=== PATIENT | female | born 1965 | race Caucasian/White ===

== ENCOUNTER → 2016-11-21 | Outpatient (CLI) | payer BC | LOC: FIMAGING 08:09 | PROVIDERS: ATTEND Radiology Diagnostic Radiology | DX: I83.812 Varicose veins of left lower extremity with pain (principal) ==

== ENCOUNTER → 2017-02-10 | Outpatient (CLI) | payer BC, OTHER | LOC: BMCIMAGING 14:01 | PROVIDERS: ATTEND Family Medicine | DX: Z12.31 Encounter for screening mammogram for malignant neoplasm of breast (principal) | CPT/HCPCS: G0202 ==

== ENCOUNTER 2017-02-16 07:37 | Day surgery (SDC) | payer BC, OTHER ==
[2017-02-16] MEDS ORDERED: SODIUM TETRADECYL SULFATE 60 MG/2 ML VIAL IV ONE (08:11)
[2017-02-16] MEDS ORDERED: LIDO/EPI 1% **for epidural** 30 ML SDV ONE (08:11)
[2017-02-16] MEDS ORDERED: ONDANSETRON 4 MG/2 ML VIAL IVP ONE (08:41)
[2017-02-16] MEDS ORDERED: ceFAZolin 2 GM/DEXTROSE 100 ML IV ONE (08:41)
[2017-02-16] MEDS ORDERED: NS 1,000 ML IV ONE (08:41)
[2017-02-16] MEDS ORDERED: CEFAZOLIN 2 GM/DEXTROSE/100 ML BAG IV ONE (08:46)
[2017-02-16] MEDS ORDERED: fentaNYL 100 MCG/2 ML INJ ONE ×2 (09:32→11:08)
[2017-02-16] MEDS ORDERED: MIDAZOLAM 2 MG/2 ML VIAL ONE ×2 (09:33→11:09)
[2017-02-16 12:10] VITALS: PULSE 69; RESP 14
[2017-02-16 13:28] VITALS: O2SAT 96
[2017-02-16 14:24] VITALS: BP 104/68
== END 2017-02-16 15:21 | disposition home or self-care (01) ==
LOC: FIMAGING 07:37
PROVIDERS: ATTEND Radiology Diagnostic Radiology
PROC: 065Q3ZZ Destruction of Left Saphenous Vein, Percutaneous Approach (ICD-10-PCS; principal; 2017-02-16 11:35)
PROC: 06DQ3ZZ Extraction of Left Saphenous Vein, Percutaneous Approach (ICD-10-PCS; principal; 2017-02-16 11:35)
PROC: 3E033TZ Introduction of Destructive Agent into Peripheral Vein, Percutaneous Approach (ICD-10-PCS; principal; 2017-02-16 11:35)
DX: I83.892 Varicose veins of left lower extremity with other complications (principal)
CPT/HCPCS: J0690; J2250; J3010

== ENCOUNTER → 2018-01-16 | Outpatient (CLI) | payer OTHER | LOC: FIMAGING 19:41 | PROVIDERS: ATTEND Family Medicine | DX: M79.605 Pain in left leg (principal); R60.0 Localized edema ==

== ENCOUNTER → 2018-02-16 | Outpatient (CLI) | payer OTHER | LOC: FIMAGING 10:45 | PROVIDERS: ATTEND Family Medicine | DX: Z12.31 Encounter for screening mammogram for malignant neoplasm of breast (principal) ==

== ENCOUNTER 2018-05-11 08:24 | Emergency (ER) | payer OTHER ==
[2018-05-11] MEDS ORDERED: NS 1,000 ML IV ONE (09:00)
[2018-05-11] MEDS ORDERED: ONDANSETRON 4 MG/2 ML VIAL IVP ONE (09:00)
--- NOTE | 2018-05-11 09:04 | EDPHY ---
H & P Time Seen by Provider: 05/11/18 08:53 HPI/ROS: HPI Left flank pain. 52-year-old female by private vehicle with her . This patient reports that she has had deep aching left flank pain ongoing for about 2 days now. Worse this morning and associated with nausea this morning. No gross hematuria. No bowel or bladder incontinence. She has not vomited. She felt this after doing a dance practice a couple of days ago. [place] that it might be a pulled muscle in her back but states that she has pulled muscles in her back and this pain is different from previous exacerbations of her back pain. ROS: Constitutional: No fever, no chills. No weakness. Eyes: No discharge. No changes in vision. ENT: No sore throat. No nasal congestion or rhinorrhea. Respiratory: No cough. No shortness of breath. Cardiac: No chest pain, no palpitations. Gastrointestinal: No abdominal pain, no vomiting, no diarrhea. As above. Genitourinary: No hematuria. No dysuria or increased frequency with urination. Musculoskeletal: As above. No neck pain. No myalgias or arthralgias. Skin: No rashes. Neurological: No headache. No focal weakness or altered sensation. Past medical history: Micro diskectomy. Social history: Nonsmoker. No alcohol. Here with her . Physical Exam: General Appearance: Alert, no distress. This patient is responding to questions appropriately and in full sentences. This patient appears well- hydrated and well-nourished. Eyes: Pupils equal and round no pallor or injection. No lid edema, erythema or injection. Respiratory: There are no retractions, lungs are clear to auscultation with good air movement bilaterally. Cardiovascular: Regular rate and rhythm. No murmur. Gastrointestinal: Abdomen is soft and nontender, no masses, bowel sounds normal. No focal tenderness at McBurney's point. No Marie sign. Neurological: Motor sensory function is grossly intact. Cranial nerves are normal. Gait is normal. Skin: Warm and dry, no rashes. Musculoskeletal: Vague left-sided CVA tenderness on palpation. No right-sided CVA tenderness on palpation. No midline cervical, thoracic, lumbar, sacral tenderness on palpation. Negative same side and cross side straight leg raise test. The patient is neurologically intact in all myotomes in dermatomes of the bilateral lower extremities. Extremities are symmetrical. All joints range without pain or impingement. Psychiatric: No agitation. No depression. Database: EKG: Imaging: CT abdomen and pelvis without contrast: This was read as a normal study. No evidence of ureterolithiasis, pyelonephritis, aortic aneurysm or dissection or other pathology. Results were discussed with staff radiologist Dr. Kristian Chun. Procedures: Emergency department course: Triage vital signs reviewed. She is mildly hypertensive. Triage vital signs otherwise normal. An IV was placed. She was started on IV normal saline with 1 L to be given over the next hour. She endorses CT imaging to evaluate for kidney stone. She will be given 4 mg of IV Zofran for nausea. She declines narcotic pain medication. After verification of a normal creatinine she will receive IV Toradol. She has no contraindications to NSAIDs. 10:50 a.m., the patient was re-evaluated. She is still uncomfortable and complaining of left flank pain. She does not think that IV Toradol helped her pain. I discussed the results of her emergency department workup and CT which are negative. At this time as a diagnosis of exclusion her pain is likely musculoskeletal in etiology. I did offer her narcotic pain medication but she is not sure if she wants to be given this. She will talk it over with her . 11:10 a.m., patient re-evaluated, she is now asking for pain medication will be given 0.5 mg of IV hydromorphone. I will reassess her and half an hour for discharge. At this time I feel that her pain is musculoskeletal. She reports that she thinks she twist and may be injured a rib during a dance practice last Monday. This is when her pain started. 12:00 p.m., the patient was re-evaluated, she is much more comfortable now. Repeat neurologic Assessment is nonfocal. Her abdomen is soft, nontender nondistended. She states her pain is well controlled. She feels comfortable going home with her and I feel she is safe for discharge. He will drive. I will prescribe her a short course of Vicodin as well as continued ibuprofen to be started tomorrow. She will follow up with her primary care physician on Monday for re-evaluation. Return to emergency department precautions were thoroughly reviewed with her and her . All of their questions were answered. She was discharged from the emergency department in good condition. Differential Diagnosis: The differential diagnosis on this patient includes but is not limited to ureterolithiasis, pyelonephritis, musculoskeletal pain. Aortic dissection, aortic aneurysm unlikely. This represents a partial list of diagnoses considered. These considerations are based on history, physical exam, past history, reassessment and diagnostic testing. Smoking Status: Never smoked Constitutional: Initial Vital Signs Temperature (C) 36.9 C 05/11/18 08:37 Heart Rate 73 05/11/18 08:37 Respiratory Rate 18 05/11/18 08:37 Blood Pressure 137/100 H 05/11/18 08:37 O2 Sat (%) 96 05/11/18 08:37 O2 Delivery Mode Room Air Allergies/Adverse Reactions: prochlorperazine [From Compazine] Allergy (Verified 05/11/18 08:37) prochlorperazine edisylate [From Compazine] Allergy (Verified 05/11/18 08:37) prochlorperazine maleate [From Compazine] Allergy (Verified 05/11/18 08:37) Home Medications: Medication Instructions Recorded Hydrocodone/APAP 5/325 [Otter 1 - 2 tab PO Q4-6PRN PRN #10 tab 05/11/18 5/325 (*)] Medical Decision Making - Data Points Laboratory Results: Laboratory Results 05/11/18 09:13 05/11/18 09:13 Medications Given: Discontinued Medications Hydromorphone HCl (Dilaudid) 0.5 mg IVP EDNOW ONE Stop: 05/11/18 11:11 Last Admin: 05/11/18 11:21 Dose: 0.5 mg Sodium Chloride (Ns) 1,000 mls @ 0 mls/hr IV EDNOW ONE; Wide Open PRN Reason: Protocol Stop: 05/11/18 09:01 Last Admin: 05/11/18 09:20 Dose: 1,000 mls Ketorolac Tromethamine (Toradol) 30 mg IVP EDNOW ONE Stop: 05/11/18 09:40 Last Admin: 05/11/18 10:10 Dose: 30 mg Ondansetron HCl (Zofran) 4 mg IVP EDNOW ONE Stop: 05/11/18 09:01 Last Admin: 05/11/18 09:20 Dose: 4 mg Departure - Departure Disposition: Home, Routine, Self-Care Clinical Impression: Left flank pain Condition: Good Instructions: Flank Pain (ED) Additional Instructions: Read and follow provided instructions. Follow-up with your primary care physician on Monday as discussed for re- evaluation. Take medication as prescribed. Narcotic pain medication: 1-2 every 4-6 hours as needed for pain. Do not drive on this medication. You can start taking ibuprofen again tomorrow morning. Ibuprofen dosin mg every 6 hours with meals for the next 3 days only. Take only as needed for pain. Return to the emergency department for worsening pain, fever, vomiting or other serious concerns. Referrals: Georgia Anaya MD [Primary Care Provider] - As per Instructions Prescriptions: Hydrocodone/APAP 5/325 [Otter 5/325 (*)] 1 - 2 tab PO Q4-6PRN PRN #10 tab PRN Reason: Pain, Moderate
[2018-05-11 09:26] LABS: PLATELET COUNT 204 10^3/uL (150-400)
[2018-05-11] MEDS ORDERED: KETOROLAC 30 MG/1 ML SDV IVP ONE (09:39)
[2018-05-11] MEDS ORDERED: HYDROmorphONE/DILAUDID 2 MG/ML INJ IVP ONE (11:10)
[2018-05-11 12:22] VITALS: BP 104/67
== END 2018-05-11 12:19 | disposition home or self-care (01) ==
DX: S29.019A Strain of muscle and tendon of unspecified wall of thorax, initial encounter (principal); X50.9XXA Other and unspecified overexertion or strenuous movements or postures, initial encounter; Y93.41 Activity, dancing
CPT/HCPCS: 96374; J1170; J1885; J2405

== ENCOUNTER → 2019-02-18 | Outpatient (CLI) | payer OTHER | LOC: FIMAGING 13:23 ==